=== PATIENT | female | born 1975 | race Caucasian/White ===

== ENCOUNTER 2022-05-23 08:21 | Observation (INO) ==
--- NOTE | 2022-05-16 15:57 | Anesthesiology Consultation ---
Date of Service May 16, 2022 Assessment & Plan (1) Encounter for pre-operative examination: - COVID screening: Per assessment on 05/16: No known COVID-19 positive contacts or current COVID-19 related symptoms. Travel screen negative. At surgeon discretion if preop Covid testing being done. - Check test AM DOS Chart Review Chart Review: Acceptable Risk for Surgery and Patient NOT seen in Pre Admission Testing History Surgery Operation Date: 05/23/22 07:00 Proposed Procedures p Total Laparoscopic Hysterectomy, Bilateral Salpingectomy, Possible Cystoscopy, Possible Laparotomy - Dax Tobias MD Height/Weight Height: 5 ft 6 in Weight: 68.039 kg Allergies Allergy/AdvReac Type Severity Reaction Status Date / Time No Known Allergies Allergy Verified 05/16/22 14:32 Medications Home Medications Medication Instructions Recorded Confirmed Last Taken ascorbic acid 7.5 mg-vit E 7.5 1 tab PO DAILY 05/16/22 05/16/22 Unknown unit-biotin 1,250 mcg chewable tablet (Hair,Skin,Nails with Biotin) buprenorphine 8 mg-naloxone 2 mg 1 film buccal BID 05/16/22 05/16/22 Unknown sublingual film (Suboxone) cholecalciferol (vitamin D3) 25 25 mcg PO QAM 05/16/22 05/16/22 Unknown mcg (1,000 unit) tablet (Vitamin D3) levothyroxine 125 mcg tablet 125 mcg PO QAM 05/16/22 05/16/22 Unknown lisinopril 10 mg tablet 10 mg PO QAM 05/16/22 05/16/22 Unknown pyridoxine (vitamin B6) 100 mg 100 mg PO QAM 05/16/22 05/16/22 Unknown tablet (Vitamin B-6) Past Medical History Medical History Anxiety and depression Hypertension Hypothyroidism Past Family History Family History Other No family history of adverse response to anesthesia Past Surgical History Surgical History H/O breast biopsy RT>BENIGN H/O hand surgery RT RING FINGER (NERVE REPAIR AND PLASTIC SURGERY) History of section X 2 History of endometrial ablation History of tonsillectomy History of tooth extraction Social History Smoking Status: Current every day smoker tobacco type: cigarettes Smoking cigarettes per day: 10 CIG DAILY>ADVISED Do You Dip or Chew Tobacco: No Hx Alcohol Use: Yes Alcohol type: beer alcohol intake frequency: a few times a week substance use type: former substance user Substance Use Type Other:: 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
[~2022-05-23 08:21] MED LIST: DEXAMETHASONE SOD INJ 4 MG/ML VIAL ONE; GLYCOPYRROLATE 0.2 MG/ML VIAL ONE; LACTATED RINGER'S 1,000 ML IV SCH; LARYING-O-JET KIT (LTA) ONE; LIDOCAINE 2% MPF LOCAL 5 ML VIAL INFIL ONE; LR 15ML/HR IV SCH; MIDAZOLAM HCL 1 MG/ML 2ML VIAL ONE; NEOSTIGMINE METHYLSULFATE 1 MG/ML 10ML VIAL ONE; ONDANSETRON INJ 2 MG/ML 2 ML VIAL ONE; PROPOFOL IV EMULSION 10 MG/ML 20 ML VIAL IV ONE; ROCURONIUM BROMIDE 10 MG/ML 5 ML VIAL IV ONE; ceFAZolin 2000MG 2,000 MG/15 ML SYR IV SCH; fentaNYL citrate 100 MCG/2 ML VIAL ONE
--- NOTE | 2022-05-23 09:17 | History & Physical Bridge Note ---
Date of Service May 23, 2022 History & Physical Bridge Note I have examined the patient, reviewed the History & Physical and in the interval since the performance of the History & Physical I have noted the following changes of clinical significance: no changes noted
[2022-05-23] MEDS ORDERED: SCOPOLAMINE 1 MG TDSY TD ONE (09:29)
[2022-05-23] MEDS ORDERED: ePHEDrine sulfate 50 MG/ML AMP IV PRN (09:30)
[2022-05-23] MEDS ORDERED: ONDANSETRON INJ 2 MG/ML 2 ML VIAL IV PRN ×2 (09:30→12:23)
[2022-05-23] MEDS ORDERED: ATROPINE SULFATE 0.1 MG/ML 10ML SYR IV PRN (09:30)
[2022-05-23] MEDS ORDERED: fentaNYL citrate 100 MCG/2 ML VIAL IV PRN (09:30)
[2022-05-23] MEDS ORDERED: METHYLENE BLUE 0.5% 10 ML VIAL ONE ×2 (09:43→11:18)
[2022-05-23] MEDS ORDERED: BUPIVACAINE 0.5 % 5 MG/1 ML MPF 30ML VIAL ONE (09:43)
[2022-05-23] MEDS ORDERED: ONDANSETRON INJ 2 MG/ML 2 ML VIAL ONE (10:17)
[2022-05-23] MEDS ORDERED: SUGAMMADEX SODIUM 200 MG/2 ML VIAL IV ONE (10:17)
[2022-05-23] MEDS ORDERED: KETAMINE 50 MG/5 ML SYRINGE ONE (10:37)
[2022-05-23] MEDS ORDERED: GLYCOPYRROLATE 0.2 MG/ML VIAL ONE (10:38)
[2022-05-23] MEDS ORDERED: ACETAMINOPHEN 1000 MG/100 ML IV IV ONE (10:42)
[2022-05-23] MEDS ORDERED: DexMEDEtomidine HCL IV 100 MCG/ML VIAL IV ONE (10:42)
[2022-05-23] MEDS ORDERED: FLOSEAL HEMOSTATIC MATRIX 10ML TOP ONE (11:23)
[2022-05-23] MEDS ORDERED: KETOROLAC 30 MG/ML VIAL ONE (11:57)
[2022-05-23] MEDS ORDERED: oxyCODONE/ACETAMINOPHEN 5mg/325mg TAB PO PRN (12:23)
[2022-05-23] MEDS ORDERED: LACTATED RINGER'S 1,000 ML IV SCH (12:30)
--- NOTE | 2022-05-23 13:16 | Anesthesiology Progress Note ---
Date of Service May 23, 2022 Anesthesia Post Procedure Vital Signs Vital Signs: Temp Pulse Pulse Resp BP BP Pulse Ox 05/23/22 12:55 97.3 F L 67 16 109/77 94 05/23/22 12:35 71 13 111/83 99 05/23/22 12:45 67 17 116/65 97 05/23/22 12:25 90 19 122/72 100 05/23/22 12:16 96.8 F L 82 17 107/73 100 05/23/22 09:06 98.6 F 82 20 144/79 H 99 O2 Del Method O2 Flow Rate 05/23/22 12:55 Room Air 05/23/22 12:35 Room Air 05/23/22 12:45 Room Air 05/23/22 12:25 Oxymask 6 05/23/22 12:16 Oxymask 6 05/23/22 09:06 Room Air Pain Intensity Abdomen: Pain Intensity: 2 Transfer of Care Handoff Completed per policy Notes Mental Status: alert / awake / arousable and participated in evaluation Patient Amnestic to Procedure: Yes Nausea / Vomiting: adequately controlled Pain: adequately controlled Airway Patency, RR, SpO2: stable & adequate BP & HR: stable & adequate Hydration State: stable & adequate Anesthetic Complications: no major complications apparent and Pt Satisfied with anesthetic care
--- NOTE | 2022-05-23 17:19 | Operative Report (OR) ---
DATE OF SURGERY: 05/23/2022. PLACE OF SURGERY: [facility]. INDICATION FOR SURGERY: This is a 46-year-old with endometrial intraepithelial neoplasia. PREOPERATIVE DIAGNOSIS: Endometrial intraepithelial neoplasia. POSTOPERATIVE DIAGNOSES: Endometrial intraepithelial neoplasia. SURGEON: Dax Tobias MD. BULK PLANT AGENT: Joselyn Mari. ATTESTATION FOR BULK PLANT AGENT: Copra Processor was necessary to help with retraction and manipulation of instr uments in order to provide for safe surgery. PROCEDURES: Total laparoscopic hysterectomy, bilateral salpingo-oophorectomy, and cystoscopy. ANESTHESIA: General. DRAINS: None. ESTIMATED BLOOD LOSS: 10 mL. URINE OUTPUT: 200 mL of clear urine at the end of procedure. INTRAVENOUS FLUIDS: 900 mL SPECIMENS: Uterus with cervix, left and right tubes and ovaries. INTRAOPERATIVE COMPLICATIONS: None. PATIENT CONDITION: Stable. DISPOSITION: Postanesthesia care unit. ATTESTATION: I performed the entire procedure. FINDINGS: Normal female escutcheon. No lesions in the vagina or cervix. Laparoscopic findings show uterus is about 8-10 week size, with several adhesions of the uterus to the anterior abdominal wall. There were adhesions also of the liver to the abdominal wall. Both ovaries and fallopian tubes harry eared grossly normal. DESCRIPTION OF PROCEDURE: The patient was taken to the operating room where she was prepped and drap ed in normal sterile fashion in dorsal lithotomy position. Cruz catheter was placed into the bladde r and uterine manipulator placed for uterine manipulation and for colpotomy. Findings of the vagina and cervix as dictated above. Attention was paid to the abdominal part of the procedure where a supraumbilical incision was made wi th a scalpel. Veress needle was introduced into the abdomen at a 45-degree angle. Veress needle was attached to a water-filled syringe. A suction and drop test was performed to confirm placement of th e Veress needle in the abdomen. Abdomen is insufflated with 3 L of CO2 gas. Veress needle was remov ed and a 5 mm trocar attached to the laparoscope and was introduced into the abdomen at a 45-degree a ngle under direct visualization. Once inside the abdomen, a laparoscope was repositioned. Findings of the abdomen was as dictated above. Three more accessory ports were placed, one 11 mm port and ano ther 5 on the left and right contralateral 5 mm was placed on the right for the assistance. The ilsa ent was placed in Trendelenburg position, abdominal cavity inspection was performed. As stated above the patient appeared to have significant uterine adhesions to the anterior part of the bladder. The left and right fallopian tubes were identified and appeared to be grossly normal. Uterus was about 8 -10 week size. Uterosacral was identified. The bowels, cecum appeared grossly normal. LigaSure was passed through the left accessory port. Left fallopian tube was identified and grasped 4 cm from th e cornua of the uterus with the LigaSure and transected. This was followed by opening of the left an terior leaf of the broad ligament. This allowed for fenestration of the posterior leaf of the broad ligament. The mid-section of the fallopian tube, utero-ovarian and meso-ovarian follicles were all t ransected as well. Same procedure was performed on the contralateral side on the right. Anterior br oad ligament dissection was carried to the mid-section of the vesicouterine peritoneum over the bladd er using the Harmonic scalpel. Same procedure was carried out on the contralateral side. The lead slot technician ior broad ligament peritoneum was carefully dissected also from both sides over the uterosacral arch in order to display the uterus laterally. Using traction and countertraction, the [place] retractor and irrigation probe was used to further dissect the bladder off the lower segment of the uterus. B ladder pillars and pubovesical fascia was dissected as well. Harmonic scalpel was used to obtain hem ostasis when necessary. Uterine manipulator was now palpable over the vaginal tissue. The right little traverse rine pedicles were skeletonized and coagulated with the LigaSure. Good hemostasis was obtained. Moises e procedure was performed on the contralateral side. The cardinal ligaments were transected on both sides. Once again, good hemostasis was obtained, colpotomy was performed using the LigaSure hook fro m both sides. Uterus was removed through the vagina while still attached to the uterine manipulator. The bulb attached to the uterine manipulator was reinserted into the vagina to establish pneumoperi toneum. With a grasper, the remaining section of the left tube and ovary were positioned anteromedia lly and salpingo-oophorectomy was performed using the LigaSure. Once again same procedure was perfor med on the contralateral side. EndoStitch closure device was passed through the 11 mm port on the left and using the [place] graspe r for traction, the colpotomy closure was performed. Uterosacral ligaments were incorporated into th e closure in order to decrease the risk of prolapse. Lapra-Tys were used with the EndoStitch closure . The 11 mm port was closed using a suture passer. This was to prevent herniation of the bowel through that incision site. Attention was paid to the cystoscopy part of the procedure where a cystoscope was placed into the fani dder. Bubble sign was noted confirming the presence of a close cavity. Both ureteral orifices were seen and there was bilateral efflux of urine from both ureteral orifices. All instruments were removed from the vagina and accounted for x2 including sponges, needles, and ret ractors. The patient is sent to recovery in stable condition. Job ID: [id number]
[2022-05-23] MEDS: DOCUSATE SODIUM 100 MG CAP PO SCH (20:23)
[2022-05-23] MEDS: IBUPROFEN 600 MG TAB PO PRN ×2 (20:23→23:59)
[2022-05-24] MEDS: IBUPROFEN 600 MG TAB PO PRN ×2 (03:59→07:53)
[2022-05-24 07:36] LABS: Hematocrit (blood only) 37.9 % (37.0-47.0); Hemoglobin 12.7 g/dl (12.0-16.0); Mean Corpuscular Hemoglobin 31.8 pg (25.0-34.0); Mean Corpuscular Hgb Conc 33.5 g/dL (32.0-36.0); Mean Corpuscular Volume 94.8 fL (80.0-100.0); Platelet Count 233 K/uL (130-400); RDW Coefficient of Variation 13.1 % (11.5-14.5); RDW Standard Deviation 45.2 fL (36.4-46.3); White Blood Count 18.26 K/ul (4.8-10.8)
[2022-05-24 08:11] LABS: Basophils # (auto) 0.06 K/uL (0-0.2); Basophils % (auto) 0.3 %; Eosinophils # (auto) 0.09 K/uL (0-0.50); Eosinophils % (auto) 0.5 %; Immature Granulocytes # (auto) 0.06 K/uL (0.01-0.20); Immature Granulocytes % (auto) 0.3 %; Lymphocytes # (auto) 4.13 K/uL (1.2-3.4); Lymphocytes % (auto) 22.6 %; Monocytes # (auto) 1.31 K/uL (0.11-0.59); Monocytes % (auto) 7.2 %; Neutrophils # (auto) 12.61 K/uL (1.40-6.50); Neutrophils % (auto) 69.1 %
[2022-05-24 08:38] LABS: Calcium 8.8 mg/dl (8.5-10.1); Potassium 4.1 mmol/L (3.5-5.1)
[2022-05-24 08:44] LABS: BUN Creatinine Ratio 16.4 (10-20); Creatinine Clr Calc Pharmacy 98.2 ml/min; Est GFR (African American) 122.2 ml/min; Est GFR (Non-African American) 105.4 ml/min
[2022-05-24] MEDS: DOCUSATE SODIUM 100 MG CAP PO SCH (09:09)
--- NOTE | 2022-05-24 10:57 | Obstetrical Progress Note ---
Date of Service May 24, 2022 Assessment & Plan (1) S/P laparoscopic hysterectomy: S/P Laparoscopic hysterectomy pt doing well d/c home with instructions Results & Data ([facility]) Vital Signs (Past 12 Hours) Vital Signs Temp Pulse Pulse Resp BP Pulse Ox O2 Del Method 05/24/22 10:25 36.6 C 64 61 16 107/49 L 98 05/24/22 07:30 36.6 C 61 16 107/49 L 98 Room Air 05/24/22 03:55 36.8 C 65 18 107/54 L 97 Room Air 05/23/22 23:55 36.9 C 64 18 94/52 L 96 Room Air
--- NOTE | 2022-05-24 21:29 | Discharge Summary (DS) ---
DATE OF ADMISSION: 05/23/2022. DATE OF DISCHARGE: 05/24/2022. CHIEF COMPLAINT/HISTORY OF PRESENT ILLNESS: This is a 46-year-old with endometrial intraepithelial n eoplasia on D and C. The patient underwent laparoscopic total hysterectomy with bilateral salpingo-o ophorectomy. Details of surgery is in the surgical note. The patient did well and has been discharg ed home today in stable condition. PAST MEDICAL HISTORY: History of anxiety and depression, hypothyroidism and history of drug use. PAST SURGICAL HISTORY: History of breast biopsy and surgery, section, endometrial ablation and tonsillectomy. ALLERGIES: No known drug allergies. REVIEW OF SYSTEMS: Negative except as dictated in the HPI. PHYSICAL EXAMINATION: GENERAL: Well-developed, well-nourished white female in no acute distress. VITAL SIGNS: Temperature this morning is 107/49, pulse is 64, respirations 16, temperature 36.6. HEART: S1 and S2, regular rhythm and rate. LUNGS: Clear to auscultation bilaterally. ABDOMEN: Nontender, nondistended. Incision clean, dry and intact. EXTREMITIES: No cyanosis, clubbing or edema. CONDITION ON DISCHARGE: Stable. OPERATIONS: Total laparoscopic hysterectomy with bilateral salpingo-oophorectomy. DISCHARGE DIAGNOSIS: Postoperative after surgery. PLAN ON DISCHARGE: The patient is discharged home with instructions regarding activity, diet, and [facility] appointment. Job ID: [id number]
== END 2022-05-24 10:55 | disposition home or self-care (01) ==
LOC: ASU 08:21 → 4E1 08:21